=== PATIENT | female | born 2000 | race Caucasian/White ===

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

== ENCOUNTER 2023-06-08 15:01 | Emergency (ER) | payer OTHER ==
[2023-06-08 15:15] VITALS: BP 118/71; PULSE 82; RESP 18; TEMP 97.7; BMI 32.5
[2023-06-08] MEDS ORDERED: LIDOCAINE HCL 2% (20ML MULTI-DOSE VIAL) ONE (16:42)
[2023-06-08] MEDS: LIDOCAINE HCL 1%, 10 MG/ML (50 mL VIAL) SQ ONE (17:08)
[2023-06-08] MEDS ORDERED: KETOROLAC TROMETHAMINE 15 MG/ML VIAL ONE (17:18)
[2023-06-08] MEDS: KETOROLAC TROMETHAMINE 15 MG/ML VIAL IM ONE (17:23)
== END 2023-06-08 17:41 | disposition home or self-care (01) ==
LOC: JERFT 15:01
PROC: 0H9BXZZ Drainage of Right Upper Arm Skin, External Approach (ICD-10-PCS; principal; 2023-06-08)
PROC: 3E0233Z Introduction of Anti-inflammatory into Muscle, Percutaneous Approach (ICD-10-PCS; 2023-06-08)
DX: L02.411 Cutaneous abscess of right axilla (principal)
CPT/HCPCS: 99284-25